=== PATIENT | female | born 1985 | race Caucasian/White ===

== ENCOUNTER 2021-04-29 05:26 | Day surgery (SDC) | payer BC, OTHER ==
[2021-04-28 14:36] VITALS: BMI 37.2
[2021-04-29] MEDS ORDERED: PROPOFOL 20 ML ONE ×2 (13:48)
[2021-04-29] MEDS ORDERED: VASOPRESSIN 20 UNITS/ML VIAL IV ONE (14:15)
[2021-04-29] MEDS ORDERED: MIDAZOLAM HCL 2 MG/2 ML SINGLE DOSE VIAL ONE (14:22)
[2021-04-29] MEDS ORDERED: oxyCODONE HCL 5 MG TABLET PO PRN (15:33)
[2021-04-29] MEDS ORDERED: PROMETHAZINE HCL 25 MG/1 ML VIAL IVPUSH PRN (15:33)
[2021-04-29] MEDS ORDERED: LACTATED RINGERS SOLUTION 1,000 ML IV SCH (15:45)
[2021-04-29] MEDS ORDERED: IBUPROFEN 400 MG TABLET (FP) PO PRN (15:50)
[2021-04-29] MEDS ORDERED: ACETAMINOPHEN 325 MG TABLET (FP) PO PRN (15:50)
[2021-04-29 17:48] VITALS: BP 140/90; PULSE 78; TEMP 97.7
== END 2021-04-29 17:48 | disposition home or self-care (01) ==
LOC: JASU-SURG 05:26
PROVIDERS: ATTEND Obstetrics & Gynecology
PROC: 0U5B8ZZ Destruction of Endometrium, Via Natural or Artificial Opening Endoscopic (ICD-10-PCS; principal; 2021-04-29 14:00)
PROC: 0UDB8ZX Extraction of Endometrium, Via Natural or Artificial Opening Endoscopic, Diagnostic (ICD-10-PCS; 2021-04-29 14:00)
DX: N92.0 Excessive and frequent menstruation with regular cycle (principal)
CPT/HCPCS: 81025; 88304-TC; 88305-TC; 94760

== ENCOUNTER 2021-12-13 04:21 | Day surgery (SDC) | payer BC, OTHER ==
[2021-12-12 13:01] VITALS: BMI 38.0
[2021-12-13] MEDS ORDERED: MIDAZOLAM HCL 2 MG/2 ML SINGLE DOSE VIAL ONE (11:45)
[2021-12-13] MEDS ORDERED: PROPOFOL 20 ML ONE ×2 (11:46)
[2021-12-13] MEDS ORDERED: SUCCINYLCHOLINE CHLORIDE 200 MG/10 ML SYRINGE ONE (11:46)
[2021-12-13] MEDS ORDERED: DEXAMETHASONE SOD PHOSPHATE 4 MG/1 ML VIAL ONE (12:01)
[2021-12-13] MEDS ORDERED: KETOROLAC TROMETHAMINE 30 MG/1 ML VIAL ONE (12:01)
[2021-12-13] MEDS ORDERED: ONDANSETRON 4 MG/2 ML VIAL ONE (12:01)
[2021-12-13] MEDS ORDERED: ONDANSETRON 4 MG/2 ML VIAL IVPUSH PRN (13:26)
[2021-12-13] MEDS ORDERED: oxyCODONE HCL 5 MG TABLET PO PRN (13:26)
[2021-12-13] MEDS ORDERED: IBUPROFEN 400 MG TABLET (FP) PO PRN (13:29)
[2021-12-13] MEDS ORDERED: ACETAMINOPHEN 325 MG TABLET (FP) PO PRN (13:29)
[2021-12-13] MEDS ORDERED: LACTATED RINGERS SOLUTION 1,000 ML IV SCH (13:30)
[2021-12-13 14:37] VITALS: RESP 18
[2021-12-13 15:11] VITALS: BP 110/66; PULSE 60; TEMP 97.2
== END 2021-12-13 15:55 | disposition home or self-care (01) ==
LOC: JASU-SURG 04:21
PROVIDERS: ATTEND Obstetrics & Gynecology
PROC: 0UDB8ZX Extraction of Endometrium, Via Natural or Artificial Opening Endoscopic, Diagnostic (ICD-10-PCS; 2021-12-13)
PROC: 0UB98ZZ Excision of Uterus, Via Natural or Artificial Opening Endoscopic (ICD-10-PCS; principal; 2021-12-13 12:15)
DX: N93.9 Abnormal uterine and vaginal bleeding, unspecified (principal); D25.9 Leiomyoma of uterus, unspecified
CPT/HCPCS: 81025; 88305-TC; 94760

== ENCOUNTER 2024-06-04 04:09 | Inpatient (IN) | payer BC, OTHER ==
[2024-06-02 13:51] VITALS: BMI 33.6
[2024-06-04 06:58] LABS: HEMATOCRIT 38.6 % (32.4-45.2); HEMOGLOBIN 12.6 GM/dL (10.7-15.3); MCH 25.4 pg (25.7-33.7); MCHC 32.7 g/dl (32.0-36.0); MEAN CELL VOLUME 77.7 fl (80-96); MEAN PLT VOLUME 8.7 fl (7.5-11.1); PLATELET COUNT 297 10^3/uL (134-434); RBC 4.97 M/mm3 (3.60-5.2); RDW 17.4 % (11.6-15.6); WHITE BLOOD COUNT 5.7 K/mm3 (4.0-10.0)
[2024-06-04 07:06] LABS: PROTHROMBIN TIME (PATIENT) 11.3 SEC (9.7-13.0)
[2024-06-04 07:08] LABS: ACTIVATED PTT 29.3 SECONDS (25.2-36.5)
[2024-06-04] MEDS ORDERED: PROPOFOL 40 ML ONE (07:49)
[2024-06-04] MEDS ORDERED: MIDAZOLAM HCL 2 MG/2 ML SINGLE DOSE VIAL ONE ×2 (07:49→08:30)
[2024-06-04] MEDS ORDERED: ceFAZolin SODIUM 1 GM VIAL ONE (07:52)
[2024-06-04] MEDS ORDERED: DEXAMETHASONE SOD PHOSPHATE 4 MG/1 ML VIAL ONE (07:52)
[2024-06-04] MEDS ORDERED: ONDANSETRON 4 MG/2 ML VIAL ONE (07:55)
[2024-06-04] MEDS: ceFAZolin SODIUM 1 GM VIAL IVPB ONE (08:40)
[2024-06-04] MEDS ORDERED: TRANEXAMIC ACID 1000 MG/10 ML VIAL ONE (09:13)
[2024-06-04] MEDS ORDERED: KETOROLAC TROMETHAMINE 30 MG/1 ML VIAL ONE (09:26)
[2024-06-04] MEDS ORDERED: PROPOFOL 20 ML ONE ×2 (09:38→10:21)
[2024-06-04] MEDS ORDERED: oxyCODONE HCL 5 MG TABLET PO PRN ×2 (11:16)
[2024-06-04] MEDS ORDERED: NALOXONE HCL 0.4 MG/ML VIAL IVPUSH PRN (11:16)
[2024-06-04] MEDS ORDERED: ONDANSETRON 4 MG/2 ML VIAL IVPUSH PRN ×2 (11:16→11:18)
[2024-06-04] MEDS: morphine SULFATE/PF 1 MG/2 ML (2cc Syringe - QUVA) IT ONE (11:47)
[2024-06-04] MEDS: LACTATED RINGERS SOLUTION 1,000 ML IV SCH (11:48)
[2024-06-04] MEDS ORDERED: ACETAMINOPHEN INJECTION 100 ML ONE (11:49)
[2024-06-04] MEDS: ACETAMINOPHEN 1000 MG/100 ML BAG IVPB ONE (11:52)
[2024-06-04] MEDS ORDERED: CEFAZOLIN 2 GM/D5W 2 GM/50 ML ML IVPB SCH (18:00)
[2024-06-04] MEDS: CEFAZOLIN 2 GM/D5W 2 GM/50 ML ML IVPB SCH (18:26)
[2024-06-04] MEDS: ACETAMINOPHEN 500 MG TABLET (FP) PO SCH (18:26)
[2024-06-04] MEDS: ACETAMINOPHEN 325 MG TABLET (FP) PO SCH (18:39)
[2024-06-04] MEDS: DOCUSATE SODIUM 100 MG CAPSULE (FP) PO SCH (21:10)
[2024-06-04] MEDS: amLODIPine BESYLATE 5 MG TABLET (FP) PO SCH (21:10)
[2024-06-05 06:56] LABS: BASO % 0.2 % (0-2.0); EOS % 0.2 % (0-4.5); HEMATOCRIT 36.8 % (32.4-45.2); HEMOGLOBIN 11.6 GM/dL (10.7-15.3); LYMPH % 19.4 % (8-40); MCH 24.7 pg (25.7-33.7); MCHC 31.7 g/dl (32.0-36.0); MEAN CELL VOLUME 77.9 fl (80-96); MEAN PLT VOLUME 8.7 fl (7.5-11.1); NEUT % 72.2 % (42.8-82.8); PLATELET COUNT 280 10^3/uL (134-434); RBC 4.72 M/mm3 (3.60-5.2); RDW 17.7 % (11.6-15.6); WHITE BLOOD COUNT 10.6 K/mm3 (4.0-10.0)
[2024-06-05 07:15] LABS: POTASSIUM 3.6 mmol/L (3.5-5.1)
[2024-06-05 07:18] LABS: CALCIUM 8.8 mg/dL (8.5-10.1)
[2024-06-05 07:20] LABS: BLOOD UREA NITROGEN 6.4 mg/dL (7-18)
[2024-06-05 07:22] LABS: CREATININE 0.7 mg/dL (0.55-1.3)
[2024-06-05] MEDS: ENOXAPARIN NA (PORCINE) 40 MG/0.4 ML DISP.SYRIN SQ SCH (09:34)
[2024-06-05] MEDS: IBUPROFEN 600 MG TABLET (FP) PO PRN (21:22)
[2024-06-06 11:56] VITALS: BP 123/84; PULSE 66; RESP 18; TEMP 98.5
== END 2024-06-06 14:25 | disposition home or self-care (01) | DRG 743 ==
LOC: J2C 04:09 → J3W 13:20
PROVIDERS: ADMIT Obstetrics & Gynecology; ATTEND Obstetrics & Gynecology
PROC: 0UB70ZZ Excision of Bilateral Fallopian Tubes, Open Approach (ICD-10-PCS; 2024-06-04)
PROC: 0UT90ZL Resection of Uterus, Supracervical, Open Approach (ICD-10-PCS; principal; 2024-06-04 08:00)
DX: D25.9 Leiomyoma of uterus, unspecified (principal)
CPT/HCPCS: 36415; 80048; 84703; 85025; 85027; 85610; 85730; 86850; 86900; 86901; 88305-TC; 88307-TC; 94010; 94760; J0131